=== PATIENT | female | born 1940 | race Caucasian/White ===

== ENCOUNTER 2017-12-17 11:22 | Emergency (ER) | payer MEDICARE ==
[~2017-12-17] VITALS: Ht 157.5 cm; Wt 79.6 kg
[2017-12-17 11:28] VITALS: BP 124/85
[2017-12-17] MEDS ORDERED: LEVO137T3 PO (11:52)
[2017-12-17] MEDS ORDERED: INSU100V8 SQ (11:52)
[2017-12-17] MEDS ORDERED: ATOR40TA78 PO (11:52)
[2017-12-17] MEDS ORDERED: NIFE60TA15 PO (11:52)
[2017-12-17] MEDS ORDERED: SODIUM CHLORIDE FLUSH 10ML SYR IVF ONE (12:00)
[2017-12-17 12:08] LABS: BASOPHILS # (AUTO) 0.07 x10^3/uL (0-0.1); BASOPHILS % (AUTO) 1 % (0-1); EOSINOPHILS # (AUTO) 0.33 x10^3/uL (0-0.4); EOSINOPHILS % (AUTO) 3 % (1-7); LYMPHOCYTES # (AUTO) 2.48 x10^3/uL (1-3.4); LYMPHOCYTES % (AUTO) 19 % (22-44); MD NO; MEAN CORPUSCULAR HEMOGLOBIN 29.5 pg (27.0-34.8); MEAN CORPUSCULAR HGB CONC 33.4 g/dL (32.4-35.8); MEAN CORPUSCULAR VOLUME 88.4 fL (80-100); MEAN PLATELET VOLUME 7.2 fL (7.4-10.4); MONOCYTES # (AUTO) 1.03 x10^3/uL (0.2-0.8); MONOCYTES % (AUTO) 8 % (2-9); NEUTROPHILS # (AUTO) 8.91 x10^3/uL (1.8-6.8); NEUTROPHILS % (AUTO) 70 % (42-75); PLATELET COUNT 365 x10^3/uL (130-400); RED BLOOD COUNT 5.43 x10^6/uL (3.82-5.3); RED CELL DISTRIBUTION WIDTH 14.3 % (9.6-15.2)
[2017-12-17 12:20] LABS: ALANINE AMINOTRANSFERASE 25 U/L (12-78); ALBUMIN 3.6 g/dL (3.4-5.0); ANION GAP 11 mmol/L (5-15); CHLORIDE 107 mmol/L (98-107); CREATININE 1.18 mg/dL (0.55-1.02)
[2017-12-17 12:23] LABS: ALKALINE PHOSPHATASE 114 U/L (45-117); BILIRUBIN,TOTAL 0.4 mg/dL (0.2-1.0); TOTAL PROTEIN 7.5 g/dL (6.4-8.2)
[2017-12-17] MEDS ORDERED: OMNIPAQUE 350 MG/ML, 75ML BOTTLE ONE (13:19)
== END 2017-12-17 14:01 | disposition home or self-care (01) ==
LOC: ED 13:52
DX: L03.211 Cellulitis of face (principal); L01.01 Non-bullous impetigo; H92.01 Otalgia, right ear; I10 Essential (primary) hypertension; E03.9 Hypothyroidism, unspecified; E11.9 Type 2 diabetes mellitus without complications
CPT/HCPCS: 36415; 70487; 80053; 82150; 85025; 93005; 99285; Q9967

== ENCOUNTER → 2018-01-29 | Outpatient (CLI) | payer MEDICARE ==
[~2018-01-29] MED LIST: ATOR40TA78 PO; INSU100V8 SQ; LEVO137T3 PO; NIFE60TA15 PO
== END | disposition home or self-care (01) ==
LOC: CFH 12:14
PROVIDERS: ATTEND Family Medicine
DX: Z12.31 Encounter for screening mammogram for malignant neoplasm of breast (principal)
CPT/HCPCS: 77063; 77067

== ENCOUNTER → 2018-01-30 | Outpatient (CLI) | payer MEDICARE | END | disposition home or self-care (01) | LOC: CFH 10:53 | PROVIDERS: ATTEND Family Medicine | DX: N63.20 Unspecified lump in the left breast, unspecified quadrant (principal) | CPT/HCPCS: 77065 ==

== ENCOUNTER → 2020-05-26 | Outpatient (CLI) | payer MEDICARE ==
[~2020-05-26] MED LIST changes: +NIFE-6 PO; -NIFE60TA15 PO
== END | disposition home or self-care (01) ==
LOC: STAR 11:18
PROVIDERS: ATTEND Otolaryngology
DX: Z01.818 Encounter for other preprocedural examination (principal); Z01.89 Encounter for other specified special examinations; Z01.812 Encounter for preprocedural laboratory examination; R79.1 Abnormal coagulation profile; I44.4 Left anterior fascicular block; R94.31 Abnormal electrocardiogram [ECG] [EKG]
CPT/HCPCS: 93005